=== PATIENT | male | born 1990 | race Caucasian/White ===

== ENCOUNTER 2025-02-07 01:30 | Emergency (ER) | payer OTHER ==
[~2025-02-07] VITALS: Ht 180.3 cm; Wt 74.8 kg
[~2025-02-07 01:30] MED LIST: HYDACE5 PO; ITRA100 PO; PENVK500 PO; PROCODE120 PO; SELSUN BLUE MO207 ML TOP; Ultram50 MG PO
[2025-02-07 01:56] LABS: BASOPHILS ABSOLUTE AUTO 0.06 K/mm3 (0.00-0.23); BASOPHILS PERCENT AUTO 1 % (0-2); EOSINOPHILS ABSOLUTE AUTO 0.40 K/mm3 (0.00-0.68); EOSINOPHILS PERCENT AUTO 4 % (0-6); Hematocrit 46.6 % (37.0-53.0); Hemoglobin 15.7 g/dL (13.5-17.5); IMMATURE GRAN ABSOLUTE AUTO 0.04 K/mm3 (0.00-0.10); IMMATURE GRAN PERCENT AUTO 0 % (0-1); LYMPHOCYTES ABSOLUTE AUTO 2.90 K/mm3 (0.84-5.20); LYMPHOCYTES PERCENT AUTO 26 % (21-46); MONOCYTES ABSOLUTE AUTO 0.81 K/mm3 (0.16-1.47); MONOCYTES PERCENT AUTO 7 % (4-13); Mean Corpuscular HGB Conc 33.7 g/dL (31.5-36.5); Mean Corpuscular Volume 107 fL (80-100); NEUTROPHILS ABSOLUTE AUTO 7.04 K/mm3 (1.96-9.15); NEUTROPHILS PERCENT AUTO 63 % (41-73); NRBC ABSOLUTE 0.00 K/mm3 (0.00-0.02); NRBC Auto 0.0 /100 WBC (0.0-0.2); Platelet Count 299 K/mm3 (150-400); RDW Coefficient Variation 12.0 % (11.7-14.2); RDW Standard Deviation 48.1 fL (35.1-46.3)
[2025-02-07 02:40] LABS: Alanine Aminotransfer (ALT/SGP 32.0 U/L (12-78); Albumin, Blood 3.8 g/dL (3.4-5.0); Albumin/Globulin Ratio 1.2 (0.8-1.8); Anion Gap 10.0 mmol/L (3-11); Aspartate Aminotrans (AST/SGOT 31.0 U/L (12-37); Bilirubin, Total 0.3 mg/dL (0.1-1.0); Blood Urea Nitrogen 10.0 mg/dL (8-24); CO2, Blood 25.0 mmol/L (21-32); Calcium, Blood 8.4 mg/dL (8.5-10.1); Chloride, Blood 111.0 mmol/L (98-108); Creatinine, Blood 0.77 mg/dL (0.60-1.20); Ethanol (Alcohol), Blood, Med 296.0 mg/dL; Globulin, Blood 3.1 g/dL (2.2-4.0); Glucose, Blood 110.0 mg/dL (70-99); Potassium, Blood 3.1 mmol/L (3.5-5.5); Sodium, Blood 143.0 mmol/L (136-145); Total Protein, Blood 6.9 g/dL (6.4-8.2)
[2025-02-07] MEDS ORDERED: AMOCLA875 PO (04:04)
[2025-02-07 04:15] VITALS: BP 127/84
== END 2025-02-07 04:32 | disposition home or self-care (01) ==
LOC: ER 01:30
PROVIDERS: Emergency Medicine
DX: T74.11XA Adult physical abuse, confirmed, initial encounter (principal); S41.152A Open bite of left upper arm, initial encounter; S41.151A Open bite of right upper arm, initial encounter; Y04.1XXA Assault by human bite, initial encounter; Z23 Encounter for immunization; F17.200 Nicotine dependence, unspecified, uncomplicated; Z88.1 Allergy status to other antibiotic agents
CPT/HCPCS: 70450; 70498; 71046; 72125; 80053; 80320; 85025; 90471; 90715; 99285-25; A9270; Q9967